=== PATIENT | female | born 1965 | race Caucasian/White ===

== ENCOUNTER 2025-02-23 10:08 | Outpatient (CLI) | payer OTHER, SELFPAY ==
--- OUTSIDE RECORDS SUMMARY | 2025-02-23 10:14 | XMS_ITS | Encounter Summary ---
Author Organization [place] [address] Care Team Providers Care Real Estate Salesperson Name Role Phone Unavailable Primary Care Provider Unavailabl e Encounter Details Date Type Department Care Team (Late st Contact Info) Description 08/08/2021 Orders Only [facility] [address] [facility] [address] [place] [address] Andree Saravia MD [address] [id number] Social History Tobacco Use Types Packs/Day Years Used Date Smoking Tobacco: Never Assessed Comments Unknown Sex and Gender Information Value Date Recorded Sex Assigned at Not on file Legal Sex Female 3:26 PM EST Gender Identity Not on file Sexual Orientation Not on file documented as of this encounter Plan of Treatment Not on file documented as of this encounter Procedures Procedure Name Priority Date/Time Associated Diagnosis Comments GMED COLONOSCOPY Routine 08/08/2021 8:00 AM EST documented in this encounter Results * GMED COLONOSCOPY (08/08/2021 8:00 AM EST) 08/08/2021 8:00 AM EST Impressions [facility] - 08/08/2021 9:05 AM EST Mild diverticulosis of the sigmoid colon. Internal hemorrhoids. Plan: Screening Colonoscopy in 10 years. This section is an excerpt of the full report. Andree Saravia MD GI PROCEDURE ORDERABLES Edited Result - Final [facility] [place] [address] documented in this encounter Visit Diagnoses Not on filedocumented in this encounter
--- OUTSIDE RECORDS SUMMARY | 2025-02-23 10:14 | XMS_ITS | Clinical Summary ---
Author Organization [facility] Address [address] [place] [address] [address] [place] [address] Phone Care Team Providers Care Associate Spa Director Name Role Phone Unavailable Primary Care Provider Unavailabl e Allergies Active Allergy Reactions Criticality Noted Date Comments Unclassified Drug Nausea And Vomiting Pt does not remember name other than antibiotic that starts with a C Medications No known medications Immunizations Immunization Administration Dates Next Due Tdap 08/24/2021 Surgical History Surgery Date Site/Laterality Comments EAR SURGERY Left TONSILLECTOMY KNEE SURGERY Left PARTIAL HYSTERECTOMY Partial Family History Medical History Relation Name Comments No Known Problems Father No Known Problems Mother Relation Name Status Comments Father Mother Social History Tobacco Use Types Packs/Day Years Used Date Smoking Tobacco: Every Day Cigarettes 0.5 35 Smokeless Tobacco: Never Alcohol Use Standard Drinks/Week Comments Yes 0 (1 standard drink = 0.6 oz pur e alcohol) occ PHQ-2 Answer Date Recorded PHQ-2 Total Score 0 11/12/2021 Comments No Sex and Gender Information Value Date Recorded Sex Assigned at Not on file Legal Sex Female 3:26 PM EST Gender Identity Not on file Sexual Orientation Not on file Obstetrics History Last Filed Vital Signs Vital Sign Reading Time Taken Comments Blood Pressure 138/72 11/12/2021 9:53 AM EDT Pulse 93 11/12/2021 9:53 AM EDT Temperature 36.2 C (97.2 F) 08/24/2021 12:49 PM EDT Respiratory Rate 15 08/24/2021 12:53 PM EDT Oxygen Saturation 98% 11/12/2021 9:53 AM EDT Inhaled Oxygen Concentration - - Weight 49.4 kg (109 lb) 11/12/2021 9:53 AM EDT Height 165.1 cm (5' 5 ) 11/12/2021 9:53 AM EDT Body Mass Index 18.14 11/12/2021 9:53 AM EDT Plan of Treatment Health Maintenance Due Date Last Done Comments Hepatitis B Vaccine (1 of 3 - 19+ 3-dose series) 1984 Pneumococcal Vaccine 50+ (1 of 2 - PCV) 1984 Cervical Cancer Screening 1986 Pap Smear 1986 HPV/Pap Cotest 10/17/1995 Breast Cancer Screening 2005 Cologuard 2010 FIT 2010 Sigmoidoscopy 2010 Virtual Colonography 2010 Zoster (1 of 2) 10/17/2015 Annual Wellness Exam 11/12/2022 11/12/2021 COVID-19 Vaccine (1 - 2023-2 5 season) 2025 Influenza Vaccine (#1) 2025 Colon Cancer Screening 08/09/2031 Colonoscopy 08/09/2031 08/08/2021 DTaP/TDaP/Td (2 - Td or Tdap) 08/25/2031 08/24/2021 Meningococcal B Vaccine Aged Out No l onger eligible based on patient's age to complete this topic Goals Goal Patient Goal Type Associated Problems Recent Progress Patient-Stated? Author Maintain a healthy diet, exercise regularly and maintain an ideal body weight General No Missy Mathew RMA Stay Tobacco Free Lifestyle No Missy Mathew RMA Procedures Procedure Name Priority Date/Time Associated Diagnosis Comments GMED COLONOSCOPY Routine 08/08/2021 8:00 AM EST from Last 3 Months or Most Recently Relevant to Health Maintenance Results * GMED COLONOSCOPY (08/08/2021 8:00 AM EST) 08/08/2021 8:00 AM EST Impressions [facility] - 08/08/2021 9:05 AM EST Mild diverticulosis of the sigmoid colon. Internal hemorrhoids. Plan: Screening Colonoscopy in 10 years. This section is an excerpt of the full report. us Andree Saravia MD GI PROCEDURE ORDERABLES Edited Result - Final [facility] [address] [place] [address] from Last 3 Months or Most Recently Relevant to Health Maintenance Insurance PLAN [place] MDR Member Subscriber Plan / Payer (Ef fective 2021-Present) Name:Tracy Burr Relation to Subscriber:Self Name:Tracy Burr Payer ID:Not on file Group ID:[id number] Type:Not on file Address: [address]
[2025-02-23] MEDS: ALBUTEROL 0.083% 2.5 MG/3 ML NEB IH (11:05)
== END 2025-02-23 23:59 | disposition home or self-care (01) ==
LOC: RT 10:09
PROVIDERS: PCP Family Medicine; Visit Provider Internal Medicine Pulmonary Disease
DX: J44.9 Chronic obstructive pulmonary disease, unspecified (principal); R94.2 Abnormal results of pulmonary function studies
CPT/HCPCS: 94060; 94618; 94726; 94729